=== PATIENT | female | born 1995 | race Caucasian/White ===

== ENCOUNTER 2018-06-24 14:50 | Emergency (ER) | END 2018-06-24 17:38 | disposition home or self-care (01) ==

== ENCOUNTER 2019-02-19 09:52 | Emergency (ER) | payer MEDICAID ==
[~2019-02-19] VITALS: Ht 162.6 cm; Wt 73.0 kg
[~2019-02-19 09:52] MED LIST: ELEC100080 PO; HYDR-3498 PO; IBUP800T48 PO; ONDA4TAB8 PO; RANI150T35 PO; ZOF8 PO
[2019-02-19 09:55] VITALS: BP 123/58; PULSE 68; RESP 18; Ht 162.6 cm; Wt 73.0 kg
[2019-02-19] MEDS ORDERED: ACET500C5 PO (11:42)
--- NOTE | 2019-02-19 15:54 | ERD ---
ER Documentation Chief Complaint Chief Complaint lower abd pain x 2 days , 5 weeks preg HPI Patient is a 23-year-old female, no past medical history, G1, P0, presents the ER for concerns of pelvic pain x2 days. Patient states her last menstrual. Was 5-5-19. Patient denies any vaginal bleeding. Patient denies any fluid loss. She states she occasionally feels cramping. Patient does not have an [employer]. ROS All systems reviewed and are negative except as per history of present illness. Medications Home Meds Active Scripts Acetaminophen* (Tylophen*) 500 Mg Capsule, 1 CAP PO Q6H PRN for PAIN AND OR ELEVATED TEMP, #20 CAP Prov:SANGITA MACHADO PA-C 02/19/19 Ibuprofen* (Motrin*) 800 Mg Tab, 800 MG PO Q6, #30 TAB Prov:HARIS FARR PA-C 06/24/18 Hydrocodone Bit-Acetaminophen* ([place]*) 5-325 Mg Tab, 1 TAB PO Q6 PRN for PAIN, #16 TAB Prov:RICHARD MOLINA MD 05/19/15 Ondansetron Hcl* (Zofran* ODT) 8 mg -ODT Tab.disper, 8 MG PO Q6 PRN for NAUSEA AND/OR VOMITING, #10 TAB Prov:RICHARD MOLINA MD 05/19/15 Hydrocodone Bit-Acetaminophen* ([place]*) 5-325 Mg Tab, 1 TAB PO Q6 PRN for PAIN, #10 TAB Prov:SAMANTHA POP 05/11/15 Ranitidine Hcl* (Zantac*) 150 Mg Tablet, 150 MG PO BID PRN for acid, #30 TAB Prov:MARILYNN BREWSTER 05/11/15 Electrolyte,Oral (Pedialyte) 1,000 Ml Solution, 100 ML PO Q6 PRN for dehydration for 3 Days, ML Prov:MARILYNN BREWSTER 05/11/15 Ondansetron Hcl* (Zofran*) 4 Mg Tablet, 4 MG PO Q6H for NAUSEA AND/OR VOMITING, #30 TAB Prov:MARILYNN BREWSTER 05/11/15 Allergies Allergies: Coded Allergies: No Known Allergy (Unverified , 06/24/18) PMhx/Soc Medical and Surgical Hx: pt denies Medical Hx, pt denies Surgical Hx History of Surgery: No Hx Neurological Disorder: No Hx Respiratory Disorders: No Hx Cardiac Disorders: No Hx Psychiatric Problems: No Hx Miscellaneous Medical Probl: No Hx Alcohol Use: No Hx Substance Use: No Hx Tobacco Use: Yes Smoking Status: Never smoker Physical Exam Vitals Vital Signs Date Temp Pulse Resp B/P (MAP) Pulse Ox O2 O2 Flow FiO2 Time Delivery Rate 02/19/19 98.1 68 18 123/58 98 09:55 (79) Physical Exam GENERAL: Well-developed, well-nourished female. Appears in no acute distress. HEAD: Normocephalic, atraumatic. EYES: Pupils are equally reactive bilaterally. EOMs grossly intact. No conjunctival erythema. ENT: Moist mucous membranes. No uvula deviation. No kissing tonsils. NECK: Supple. No meningismus. Normal range of motion of the neck. LUNG: Clear to auscultation bilaterally. No rhonchi, wheezing, rales or coarse breath sounds. HEART: Regular rate and rhythm. No murmurs, rubs or gallops. ABDOMEN: Soft, nontender, and nondistended. Positive bowel sounds in all four quadrants. No rebound tenderness, no guarding. (-) McBurney's point tenderness. No CVA tenderness. EXTREMITIES: Equal pulses bilaterally. No peripheral clubbing, cyanosis or edema. No unilateral leg swelling. NEUROLOGIC: Alert and oriented. Moving all four extremities without any difficulty. Normal speech. Steady gait. SKIN: Normal color. Warm and dry. No rashes or lesions. Result Diagram: 02/19/19 1026 Results 24 hrs Laboratory Tests Test 02/19/19 10:26 02/19/19 10:28 White Blood Count 8.6 10^3/ul Red Blood Count 4.17 10^6/ul Hemoglobin 12.5 g/dl Hematocrit 36.6 % Mean Corpuscular Volume 87.8 fl Mean Corpuscular Hemoglobin 30.0 pg Mean Corpuscular Hemoglobin Concent 34.2 g/dl Red Cell Distribution Width 12.9 % Platelet Count 261 10^3/UL Mean Platelet Volume 9.9 fl Immature Granulocytes % 0.200 % Neutrophils % 66.6 % Lymphocytes % 24.9 % Monocytes % 4.9 % Eosinophils % 3.0 % Basophils % 0.4 % Nucleated Red Blood Cells % 0.0 /100WBC Immature Granulocytes # 0.020 10^3/ul Neutrophils # 5.7 10^3/ul Lymphocytes # 2.1 10^3/ul Monocytes # 0.4 10^3/ul Eosinophils # 0.3 10^3/ul Basophils # 0.0 10^3/ul Nucleated Red Blood Cells # 0.0 10^3/ul Urine Color YELLOW Urine Clarity SLIGHTLY CLOUDY Urine pH 5.0 Urine Specific [place] 1.013 Urine Ketones NEGATIVE mg/dL Urine Nitrite NEGATIVE mg/dL Urine Bilirubin NEGATIVE mg/dL Urine Urobilinogen NEGATIVE mg/dL Urine Leukocyte Esterase NEGATIVE [place]/ul Urine Microscopic RBC 2 /HPF Urine Microscopic WBC 1 /HPF Urine Squamous Epithelial Cells FEW /HPF Urine Hemoglobin 1+ mg/dL Urine Glucose NEGATIVE mg/dL Urine Total Protein NEGATIVE mg/dl Beta HCG, Quantitative 1991.4 mIU/ml POC Beta HCG, Qualitative POSITIVE Procedures/MDM ED COURSE: The patient was stable throughout ED course. I kept the patient and/or family informed of laboratory and diagnostic imaging results throughout the ED course. DIAGNOSTIC IMAGING: Read by radiologist. Patient: KATHERINE MCMANUS : 1995 Age: 23 Sex: F MR #: [id number] DOS: 02/19/19 1015 Ordering MD: SANGITA MACHADO PA-C Location: [facility] Room/Bed: PROCEDURE: First trimester obstetrical ultrasound. CLINICAL INDICATION: . Evaluate size and dates. TECHNIQUE: Transabdominal galvez scale and color Doppler ultrasound of the uterus. Transvaginal imaging was not performed. COMPARISON: None available FINDINGS: Intrauterine : Present Ectopic : None Mean sac diameter: 0.38 cm Yolk sac diameter: Not yet visualized [place]-rump length: Not yet visualized Subchorionic bleed: None Cervix: Unremarkable. Ovaries: Normal right ovary. Left ovary not well visualized. Free fluid: None. IMPRESSION: 1. Possible tiny early intrauterine gestational sac. 2. Estimated gestational age of 5 weeks 0 days by ultrasound criteria, assuming true intrauterine gestational sac. 3. Estimated date of delivery of 10/22/2019. 4. No subchorionic hemorrhage. 5. Too early for visualization of the yolk sac or embryonic pole. RPTAT: PP .Fam Singh MD, MD Date Time Electronically viewed and signed by .Fam Singh MD, MD on 02/19/2019 11:18 .B/ CC: SANGITA MACHADO PA-C [id number] MEDICAL DECISION MAKING: This is a 20-year-old female, G1, P0, presents the ER for concerns of pelvic jorge luis n x2 days. Patient denies any vaginal bleeding.. Vital signs were reviewed. Patient was afebrile. Patient was hemodynamically stable. Urine test was positive. Patient's beta-hCG was noted to be 1991. CBC showed no evidence of systemic infection or severe anemia. Pelvic US showed 1. Possible tiny early intrauterine gestational sac. 2. Estimated gestational age of 5 weeks 0 days by ultrasound criteria, assuming true intrauterine gestational sac. 3. Estimated date of delivery of 10/22/2019. 4. No subchorionic hemorrhage. 5. Too early for visualization of the yolk sac or embryonic pole. Patient's blood type was noted to be a positive. Given that yolk sac was not visualized, she was advised that she will need repeat beta-hCG and ultrasound in 2 days. Patient advised return to the ER for any new or worsening symptoms but not limited to bleeding. Differential diagnosis included was not limited to UTI, pyelonephritis, nephrolithiasis, ectopic , ruptured ectopic , molar , subchorionic hematoma, spontaneous , incomplete , complete , missed , placental abruption, placental previa, vasa previa, uterine rupture, anembyronic . Patient was nontoxic, [id number] prior to discharge. DISCHARGE: At this time, patient is stable for discharge and outpatient management. I have instructed the patient to follow-up with her OBGYN in 1-2 days for further monitoring including a repeat b-HCG level. I have instructed the patient to promptly return to the ER at any time for any new or worsening symptoms including increased pain, nausea, vomiting, continued bleeding, weakness, syncope or fever. The patient and/or family expressed understanding of and agreement with this plan. All questions were answered. Home care instructions were provided. Disclaimer: Inadvertent spelling and grammatical errors are likely due to EHR/dictation software use and do not reflect on the overall quality of patient care. Also, please note that the electronic time recorded on this note does not necessarily reflect the actual time of the patient encounter. Departure Diagnosis: Primary Impression: Pelvic pain complicating Condition: Fair Patient Instructions: Pelvic Pain In : Unclear (2-3 Trimester) Referrals: [facility] YOU HAVE RECEIVED A MEDICAL SCREENING EXAM AND THE RESULTS INDICATE THAT YOU DO NOT HAVE A CONDITION THAT REQUIRES URGENT TREATMENT IN THE EMERGENCY DEPARTMENT. FURTHER EVALUATION AND TREATMENT OF YOUR CONDITION CAN WAIT UNTIL YOU ARE SEEN IN YOUR DOCTORS OFFICE WITHIN THE NEXT 1-2 DAYS. IT IS YOUR RESPONSIBILITY TO MAKE AN APPOINTMENT FOR FOLOW-UP CARE. IF YOU HAVE A PRIMARY DOCTOR --you should call your primary doctor and schedule an appointment IF YOU DO NOT HAVE A PRIMARY DOCTOR YOU CAN CALL OUR PHYSICIAN REFERRAL HOTLINE AT IF YOU CAN NOT AFFORD TO SEE A PHYSICIAN YOU CAN CHOSE FROM THE FOLLOWING [facility] [address] [facility] [address] [employer] [facility]. [facility] [address] [facility] [address] [facility] [address] [facility]. [facility]. [address] [facility]. [facility] YOU HAVE RECEIVED A MEDICAL SCREENING EXAM AND THE RESULTS INDICATE THAT YOU DO NOT HAVE A CONDITION THAT REQUIRES URGENT TREATMENT IN THE EMERGENCY DEPARTMENT. FURTHER EVALUATION AND TREATMENT OF YOUR CONDITION CAN WAIT UNTIL YOU ARE SEEN IN YOUR DOCTORS OFFICE WITHIN THE NEXT 1-2 DAYS. IT IS YOUR RESPONSIBILITY TO MAKE AN APPOINTMENT FOR FOLOW-UP CARE. IF YOU HAVE A PRIMARY DOCTOR --you should call your primary doctor and schedule and appointment IF YOU DO NOT HAVE A PRIMARY DOCTOR YOU CAN CALL OUR PHYSICIAN REFERRAL HOTLINE AT . IF YOU CAN NOT AFFORD TO SEE A PHYSICIAN YOU CAN CHOSE FROM THE FOLLOWING [facility] INSTITUTIONS: [facility] [address] [place] [address] [facility] [address] [place] [address] [facility] [address] [place] [address] Additional Instructions: Regresar en dos griffin para recheck. Llame al doctor MAANA y arpan simon RAZA PARA DENTRO DE 1-2 GRIFFIN.Dgale a la secretaria que nosotros le instruimos hacer esta raza.Avise o llame si danielle condicin se empeora antes de la raza. Regresa aqui si peor o no mejor. SANGITA MACHADO PA-C Feb 19, 2019 15:54
== END 2019-02-19 11:45 | disposition home or self-care (01) ==
LOC: FTE 09:52
DX: O26.891 Other specified pregnancy related conditions, first trimester (principal); R10.2 Pelvic and perineal pain; Z3A.01 Less than 8 weeks gestation of pregnancy
CPT/HCPCS: 36415; 76801; 81001; 81025; 84702; 85025; 86900; 86901; Z7502